=== PATIENT | male | born 1945 | race Caucasian/White ===

== ENCOUNTER 2016-09-26 22:48 | Emergency (ER) | payer MEDICARE ==
[~2016-09-26] VITALS: Ht 198.1 cm; Wt 84.0 kg
[~2016-09-26 22:48] MED LIST: ATOR20TA9 PO; AZIT250T89 PO; CEFD300C37 PO; CHOL20002 PO; ESCI10TA PO; LACT1CAP4 PO; LEVO500T33 PO; METO25TA35 PO; NITR100C56 PO; PHEN100C PO; PHEN50TA4 PO; RIVA20TA PO; TAMS-11 PO
[2016-09-26] MEDS ORDERED: SODIUM CHLORIDE 0.9% 1,000ML IVBOLUS ONE (23:30)
[2016-09-26] MEDS ORDERED: SODIUM CHLORIDE FLUSH 10ML SYR IVF ONE (23:30)
[2016-09-26 23:54] LABS: BLOOD UREA NITROGEN 8 mg/dL (7-18)
[2016-09-26 23:59] LABS: ASPARTATE AMINO TRANSFERASE 19 U/L (15-37)
[2016-09-27] MEDS ORDERED: CEFTRIAXONE PMX 1GM/50ML 50 ML IV ONE (03:30)
[2016-09-27] MEDS ORDERED: ALPR-475 PO (03:43)
[2016-09-27] MEDS ORDERED: CEFTRIAXONE PMX 1GM/50ML 50 ML ONE (03:49)
[2016-09-27] MEDS ORDERED: KETOROLAC 30 MG/1 ML ONE (04:26)
[2016-09-27] MEDS ORDERED: LORazepam 2 MG/ML, 1ML ONE (04:27)
[2016-09-27] MEDS ORDERED: KETOROLAC 30 MG/1 ML IVPush ONE (04:30)
[2016-09-27] MEDS ORDERED: LORazepam 2 MG/ML, 1ML IVPush ONE (04:30)
[2016-09-27 05:10] VITALS: BP 123/66
== END 2016-09-27 05:11 | disposition home or self-care (01) ==
LOC: ED 23:59
DX: A04.7 Enterocolitis due to Clostridium difficile (principal); N30.00 Acute cystitis without hematuria; L98.8 Other specified disorders of the skin and subcutaneous tissue; G40.909 Epilepsy, unspecified, not intractable, without status epilepticus; I25.2 Old myocardial infarction; Z88.0 Allergy status to penicillin; Z86.73 Personal history of transient ischemic attack (TIA), and cerebral infarction without residual deficits
CPT/HCPCS: 36415; 80053; 81001; 85025; 87086; 87324; 96361; 96365; 96375; 99284; J0696; J1885; J2060; J7030; 87077; 87186

== ENCOUNTER 2017-01-20 08:12 | Emergency (ER) | payer MEDICARE ==
[~2017-01-20] VITALS: Ht 198.1 cm; Wt 84.0 kg
[~2017-01-20 08:12] MED LIST changes: +ALPR-475 PO; -LEVO500T33 PO; +LEVO500T47 PO
[2017-01-20 08:56] LABS: HEMATOCRIT 44.4 % (39.2-51.8); HEMOGLOBIN 15.4 g/dL (13.7-18.0); WHITE BLOOD COUNT 9.1 x10^3/uL (3.4-10)
[2017-01-20] MEDS ORDERED: SODIUM CHLORIDE FLUSH 10ML SYR IVF ONE (09:00)
[2017-01-20] MEDS ORDERED: SODIUM CHLORIDE 0.9% 1,000ML IVBOLUS ONE (09:00)
[2017-01-20 09:10] LABS: ASPARTATE AMINO TRANSFERASE 12 U/L (15-37); BLOOD UREA NITROGEN 19 mg/dL (7-18)
[2017-01-20 09:23] LABS: IS PT STATUS REG ER OR PRE ER? YES
[2017-01-20] MEDS ORDERED: CEFTRIAXONE PMX 1GM/50ML 50 ML IVPB ONE (11:30)
[2017-01-20 12:32] VITALS: BP 125/59
== END 2017-01-20 12:36 | disposition home or self-care (01) ==
LOC: ED 10:31
DX: R55 Syncope and collapse (principal); N30.01 Acute cystitis with hematuria; H10.32 Unspecified acute conjunctivitis, left eye; B96.89 Other specified bacterial agents as the cause of diseases classified elsewhere; Z86.73 Personal history of transient ischemic attack (TIA), and cerebral infarction without residual deficits; I25.2 Old myocardial infarction
CPT/HCPCS: 36415; 70450; 71010; 80053; 80185; 81001; 84484; 85025; 87086; 93005; 96361; 96365; 99285; J0696; J7030